=== PATIENT | female | born 1975 | race American Indian/Alaskan Native ===

== ENCOUNTER 2019-07-26 22:00 | Emergency (ER) | payer MEDICARE ==
--- NOTE | 2019-07-26 22:11 | Emergency Department Report ---
Blank Doc - Documentation Documentation: This is a 43-year-old female that presents with headache. Stated has primary headache on the right side. No symptoms of stroke. no one sided weakness. normal speech. This initial assessment/diagnostic orders/clinical plan/treatment(s) is/are subject to change based on patient's health status, clinical progression and re- assessment by fellow clinical providers in the ED. Further treatment and workup at subsequent clinical providers discretion. Patient/guardians urged not to elope from the ED as their condition may be serious if not clinically assessed and managed. Initial orders include: 1- Patient sent to [facility] for further evaluation and treatment 2- CT head
--- NOTE | 2019-07-26 23:05 | Cat Scan Report ---
CT HEAD WITHOUT CONTRAST INDICATION: headache. TECHNIQUE: All CT scans at this location are performed using CT dose reduction for ALARA by means of automated e xposure control. COMPARISON: None available. FINDINGS: HEMORRHAGE: None. EXTRA-AXIAL SPACES: Normal in size and morphology for the patient's age. VENTRICULAR SYSTEM: Normal in size and morphology for the patient's age. BRAIN PARENCHYMA: No acute findings. MIDLINE SHIFT OR HERNIATION: None. ORBITS: Normal as visualized. SOFT TISSUES OF HEAD: Normal. CALVARIUM: Normal. VISUALIZED PARANASAL SINUSES AND MASTOID AIR CELLS: Clear. ADDITIONAL FINDINGS: None. IMPRESSION: 1. No acute intracranial abnormality. Signer Name: Taz Figueroa MD Signed: 07/26/2019 11:01 PM Workstation Name: [id number]
--- NOTE | 2019-07-27 00:44 | Emergency Department Report ---
ED General Adult HPI - General Chief complaint: Abdominal Pain Stated complaint: RT SIDE PAIN/HEADACHE Time Seen by Provider: 07/26/19 22:10 Source: patient, RN notes reviewed, old records reviewed Mode of arrival: Ambulatory Limitations: No Limitations - History of Present Illness Initial comments: This is a 43-year-old female. I have evaluated this patient in the past. Her past medical history includes morbid obesity, hypertension, asthma, acalculous cholecystitis, chronic narcotic dependence, reported chronic headaches. Patient presents to the ER complaining of headache. Headache started yesterday after doing physical therapy. The headache is frontal and bitemporal. The headache is not described as sudden or thunderclap in nature. The headache has not which maximal intensity within the first hour of onset. Patient reports chronic he adaches. She reports this headache is intense, but she tells me that this is not the most intense headache of her life. She feels like she's had worse headaches in the past. This headache is associated with nausea, cramping, photophobia. She denies vomiting, chest pain, abdominal pain. She denies urinary symptoms. She has chronic right-sided shoulder pain. She had elective outpatient orthopedic surgery in May. Her physical therapy has not included chiropractic manipulation, or neck massages. Symptoms were improved in the emergency room with supportive care. She reports getting headaches like this once or twice a month. -: Gradual Location: head, right, upper extremity Severity scale (0 -10): 10 Quality: stabbing, aching Consistency: constant Improves with: medication, rest Worsens with: movement, other (exposure to light, exposure to sound) - Related Data Previous Rx's Medication Instructions Recorded Last Taken Type Metoclopramide [Reglan] 10 mg PO QID PRN #30 tablet 07/27/19 Unknown Rx Allergies Allergy/AdvReac Type Severity Reaction Status Date / Time ibuprofen [From Motrin] AdvReac Nausea Verified 05/27/15 17:03 ED Review of Systems ROS: Stated complaint: RT SIDE PAIN/HEADACHE Other details as noted in HPI Constitutional: malaise Eyes: denies: eye discharge ENT: denies: epistaxis Respiratory: denies: cough Cardiovascular: denies: syncope Gastrointestinal: nausea. denies: abdominal pain, vomiting Musculoskeletal: arthralgia, myalgia Skin: denies: lesions Neurological: headache Psychiatric: anxiety ED Past Medical Hx - Past Medical History Previous Medical History?: Yes Hx Hypertension: Yes (Patient admits to a history of HTN, but not currently.) Hx Congestive Heart Failure: No Hx Diabetes: No Hx Deep Vein Thrombosis: No Hx Renal Disease: (pt reports ARF in April from gallbladder surgery) Hx Asthma: Yes (inhaler this am) Hx COPD: No Additional medical history: high cholesterolpelvic abscesses s/p gallito. - Surgical History Past Surgical History?: Yes Hx Pacemaker: No Hx Internal Defibrillator: No Hx Cholecystectomy: Yes Additional Surgical History: pelvic abscesses surgically drained by Dr. Swain several times in last 2 monthsPartial transverse colectomy in May 2015Sigmoid colon resection, Colostomy with Evelia pouch June 2015 - Social History Smoking Status: Current Every Day Smoker Substance Use Type: None - Medications Home Medications: Home Medications Medication Instructions Recorded Confirmed Last Taken Type Metoclopramide [Reglan] 10 mg PO QID PRN #30 tablet 07/27/19 Unknown Rx ED Physical Exam - General Limitations: No Limitations General appearance: alert, anxious, in distress - Head Head exam: Present: atraumatic, normocephalic - Eye Eye exam: Present: normal appearance, PERRL, EOMI, other (visual acuity intact to finger counting and color perception at the closest). Absent: nystagmus - ENT ENT exam: Present: normal exam, normal orophraynx, mucous membranes moist, normal external ear exam - Neck Neck exam: Present: normal inspection, full ROM. Absent: tenderness, meningismus - Respiratory Respiratory exam: Present: normal lung sounds bilaterally. Absent: respiratory distress, wheezes, rales, rhonchi, stridor, chest wall tenderness - Cardiovascular Cardiovascular Exam: Present: regular rate, normal rhythm, normal heart sounds. Absent: bradycardia, tachycardia, irregular rhythm, systolic murmur, diastolic murmur, rubs, gallop - GI/Abdominal GI/Abdominal exam: Present: soft. Absent: distended, tenderness, guarding, rebound, rigid, pulsatile mass - Extremities Exam Extremities exam: Present: normal inspection, full ROM, other (2+ pulses noted in the bilateral upper, lower extremities. Compartments soft. No long bony tenderness. The pelvis is stable.). Absent: pedal edema, joint swelling, calf tenderness - Back Exam Back exam: Present: normal inspection, full ROM. Absent: tenderness, CVA tenderness (R), CVA tenderness (L), paraspinal tenderness, vertebral tenderness - Neurological Exam Neurological exam: Present: alert, normal gait, other (2+ pulses noted in the bilateral upper, lower extremities. Compartments soft. No long bony te nderness. The pelvis is stable.). Absent: motor sensory deficit - Psychiatric Psychiatric exam: Present: anxious - Skin Skin exam: Present: warm, dry, intact, normal color. 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 1 07/05/2019 OXYCODONE HCL 10 MG TABLET 90.0 25 ER BERNARDA [id number] [facility]ANE ([id number]) 0 54.0 [place] 06/21/2019 2 06/01/2019 OXYCODONE-ACETAMINOPHEN 10-325 90.0 22 SC BAR [id number] [facility]AL[facility] ([id number]) 0 61.36 [place] 05/20/2019 1 04/27/2019 OXYCODONE-ACETAMINOPHEN 10-325 60.0 30 SC BAR [id number] ARIANE ([id number]) 0 30.0 [place] 05/12/2019 2 05/12/2019 OXYCODONE HCL 10 MG TABLET 90.0 30 ED BRENT [id number] [facility] ([id number]) 0 45.0 [place] 04/25/2019 2 04/13/2019 OXYCODONE-ACETAMINOPHEN 10-325 60.0 20 SC BAR [id number] [facility] ([id number]) 0 45.0 [place] 04/11/2019 4 12/16/2018 OXYCONTIN ER 10 MG TABLET 14.0 7 MING GAL [id number] [facility] ([id number]) 0 30.0 [place] 04/11/2019 4 03/20/2019 OXYCODONE HCL 10 MG TABLET 93.0 31 JA SRI [id number] [facility] ([id number]) 0 45.0 [place] 03/13/2019 4 03/13/2019 OXYCODONE HCL 10 MG TABLET 93.0 31 MING GAL [id number] [facility] ([id number]) 0 45.0 [place] 03/11/2019 4 03/08/2019 ACETAMINOPHEN-COD #3 TABLET 10.0 2 RI SWA [id number] [facility] ([id number]) 0 22.5 [place] 02/07/2019 3 01/23/2019 OXYCODONE HCL 10 MG TABLET 120.0 30 MING GAL [id number] [facility] ([id number]) 0 60.0 [place] 01/05/2019 3 01/05/2019 OXYCODONE HCL 10 MG TABLET 93.0 31 MING GAL [id number] [facility] ([id number]) 0 45.0 [place] 12/29/2018 3 12/19/2018 OXYCODONE HCL 10 MG TABLET 21.0 7 MING GAL [id number] [facility] ([id number]) 0 45.0 [place] 11/25/2018 3 11/18/2018 OXYCONTIN ER 10 MG TABLET 60.0 30 MING GAL [id number] [facility] ([id number]) 0 30.0 [place] 11/25/2018 3 10/19/2018 OXYCODONE HCL 10 MG TABLET 90.0 30 MING GAL [id number] [facility] ([id number]) 0 45.0 [place] 10/26/2018 1 09/19/2018 OXYCONTIN ER 10 MG TABLET 60.0 30 MING GAL [id number] [facility]ANE ([id number]) 0 30.0 [place] 10/26/2018 3 09/19/2018 OXYCODONE HCL 10 MG TABLET 90.0 30 MING GAL [id number] [facility] (2639) 0 45.0 [place] 09/19/2018 3 09/19/2018 OXYCONTIN 10 MG TABLET 54.0 28 MING GAL [id number] [facility] ([id number]) 0 28.93 [place] Reevaluation #2: 07/27/19 05:33 Differential diagnosis, including but not limited to: Rebound headache, migraine headache, tension headache, cluster headache, sinusitis, intracranial mass lesion Assessment and plan: 43-year-old female, on chronic narcotic therapy, who reports chronic headaches, with headache that is reported as not the worst headache of her life, but more intense than some of her prior headaches. She is afebrile without neck stiffness, moving 4 extremities without difficulty. A noncontrast CT scan of the brain was ordered prior to my evaluation. It is unremarkable. Her history is not suggestive of subarachnoid hemorrhage, and she does not describe a sudden or thunderclap headache, the headache is not maximal intensity at onset, there is no recent chiropractic manipulation, she is an unremarkable cranial nerve examination. She states she is not limited given within the past 6 weeks. This is most likely an exacerbation of her chronic headache disorder. Her pain is treated supportively and appropriately. Her pain is improved. She walks with a steady gait. The patient may follow up with an outpatient primary care doctor, neurologist or pain specialist. The patient may benefit from de-escalation of her chronic narcotic therapy. I would defer this to her primary care doctor or pain specialist. ED Medical Decision Making - Lab Data Result diagrams: 07/27/19 01:33 Vital Signs 07/26/19 07/27/19 07/27/19 22:13 00:35 03:45 Temperature 97.5 F L Pulse Rate 92 H 90 78 Respiratory 18 22 18 Rate Blood Pressure 171/111 Blood Pressure 169/91 144/84 [Right] O2 Sat by Pulse 100 100 99 Oximetry Lab Results 07/26/19 07/27/19 07/27/19 Range/Units 22:11 01:33 01:58 Sodium 139 (137-145) mmol/L Potassium 4.0 (3.6-5.0) mmol/L Chloride 100.5 (98-107) mmol/L Carbon Dioxide 26 (22-30) mmol/L Anion Gap 17 mmol/L BUN 11 (7-17) mg/dL Creatinine 0.6 L (0.7-1.2) mg/dL Estimated GFR > 60 ml/min BUN/Creatinine Ratio 18 % Glucose 106 H (65-100) mg/dL POC Glucose 100 (70-105) Calcium 9.6 (8.4-10.2) mg/dL Magnesium 2.00 (1.7-2.3) mg/dL Total Creatine Kinase 253 H (30-135) units/L HCG, Quant < 2 (0-4) mIU/mL - EKG Data -: EKG Interpreted by Me EKG shows normal: sinus rhythm Rate: normal - EKG Data 07/27/19 05:33 This is a sinus rhythm, 87 bpm, normal axis, QTC within normal limits, the EKG is not consistent with ST elevation myocardial infarction. - Radiology Data Radiology results: report reviewed, image reviewed Noncontrast CT scan of the brain is negative for acute disease Critical care attestation.: If time is entered above; I have spent that time in minutes in the direct care of this critically ill patient, excluding procedure time. ED Disposition Clinical Impression: Narcotic dependence, Headache Disposition: [id number]-01 TO HOME OR SELFCARE Is pt being admited?: No Does the pt Need Aspirin: No Condition: Stable Instructions: Abdominal Pain (ED) Additional Instructions: Patient should follow-up with her primary care doctor or pain specialist within the next 7-10 days for repeat checkup and evaluation. Recommend patient get at least 7-8 hours of good quality uninterrupted sleep each night, avoid distractions, such as television, electronic, excessive use on saline phone. Make certain that the patient gets eyes checked for glasses or contact lenses. In addition, recommend that patient discussed with her primary care doctor or pain specialist narcotic tapering, as long-term consumption of narcotic therapy may cause addiction, dependence, and may increase patient's sensitivity to pain in both the head and abdomen. Take pain medication, nausea medication, headache medication as needed/directed. Patient may return to the emergency room right away if she has any new, worsening or different symptoms, or symptoms not present on the initial emergency room evaluation. Referrals: TARIQ CLAYTON MD [Staff Physician] - 7-10 days (neurology) OMER SMITH MD [Staff Physician] - 7-10 days (pain specialist)
[2019-07-27] MEDS ORDERED: SOLU-Medrol IV ONE (00:59)
[2019-07-27] MEDS ORDERED: REGLAN IV ONE (00:59)
[2019-07-27] MEDS ORDERED: MAGNESIUM SULFATE 2GM/50ML 2 GM/50 ML BAG IV ONE (00:59)
[2019-07-27] MEDS ORDERED: FIORICET PO ONE (00:59)
[2019-07-27] MEDS ORDERED: BENADRYL IV ONE (00:59)
[2019-07-27 01:58] LABS: BUN/Creatinine Ratio 18; Blood Urea Nitrogen 11 mg/dL (7-17); Calcium 9.6 mg/dL (8.4-10.2); Hemolysis Index 10
[2019-07-27] MEDS: XYLOCAINE TOPICAL 4% TP ONE ×2 (02:03→02:25)
[2019-07-27] MEDS ORDERED: REGLAN PO ONE (03:36)
[2019-07-27 06:42] VITALS: BP 124/74
== END 2019-07-27 06:50 | disposition home or self-care (01) ==
LOC: ED 22:00
DX: F11.20 Opioid dependence, uncomplicated (principal); I10 Essential (primary) hypertension; J45.909 Unspecified asthma, uncomplicated; E78.00 Pure hypercholesterolemia, unspecified; F17.200 Nicotine dependence, unspecified, uncomplicated; Z98.890 Other specified postprocedural states; Z90.49 Acquired absence of other specified parts of digestive tract; Z79.899 Other long term (current) drug therapy; Z88.6 Allergy status to analgesic agent; E66.01 Morbid (severe) obesity due to excess calories
CPT/HCPCS: 36415; 70450; 80048; 82550; 82962; 83735; 84702; 93005; 93010; 96374; 96375; 99285; J1200; J2765; J2930; J3475